=== PATIENT | male | born 2000 | race Caucasian/White ===

== ENCOUNTER 2025-07-14 08:18 | Emergency (ER) | payer BC ==
[2025-07-14 08:40] LABS: APPEARANCE,URINE SLIGHTLY CLOUDY (CLEAR); GLUCOSE,URINE NEGATIVE (NEGATIVE); OCCULT BLOOD,URINE LARGE (NEGATIVE)
[2025-07-14] MEDS ORDERED: Sodium Chloride 0.9% 10 ML Syringe FLUSH PRN (08:40)
[2025-07-14 08:45] LABS: EPITHELIAL CELLS,URINE OCCASIONAL /HPF
[2025-07-14] MEDS: Ketorolac 15 MG/ML SDV IVPUSH ONE (08:46)
[2025-07-14] MEDS: Ondansetron 4 MG/2 ML SDV IVPUSH ONE (08:47)
== END 2025-07-14 10:00 | disposition home or self-care (01) ==
LOC: LB.ED 08:18
DX: N20.0 Calculus of kidney (principal); Z88.0 Allergy status to penicillin; Z88.1 Allergy status to other antibiotic agents; Z79.899 Other long term (current) drug therapy
CPT/HCPCS: 81001; 96374; 96375; 99284; A9270; J1171; J1885; J2405